=== PATIENT | female | born 1965 | race Caucasian/White ===

== ENCOUNTER → 2018-01-18 | Outpatient (CLI) | payer OTHER ==
[2018-01-18 14:58] LABS: ADD MAN DIFF? NO
[2018-01-18 15:00] LABS: BASO # 0.1 x10^3/uL (0.0-0.2); BASO % 1 % (0-3); EOS # 0.1 x10^3/uL (0.0-0.7); EOS % 1 % (0-3); HEMATOCRIT 38.5 % (36.0-47.0); HEMOGLOBIN 13.1 g/dL (12.0-15.5); LYMPH # 1.6 x10^3/uL (1.0-4.8); LYMPH % 28 % (24-48); MEAN CORPUSCULAR HEMOGLOBIN 31 pg (25-35); MEAN CORPUSCULAR HGB CONC 34 g/dL (31-37); MEAN CORPUSCULAR VOLUME 91 fL (79-100); MONO # 0.3 x10^3/uL (0.0-1.1); MONO % 5 % (0-9); NEUT # 3.8 x10^3uL (1.8-7.7); NEUT % 65 % (31-73); PLATELET COUNT 224 x10^3/uL (140-400); RED BLOOD COUNT 4.25 x10^6/uL (3.50-5.40); RED CELL DISTRIBUTION WIDTH 13.6 % (11.5-14.5); WHITE BLOOD COUNT 5.8 x10^3/uL (4.0-11.0)
[2018-01-18 15:16] LABS: ANION GAP 4 (6-14); BLOOD UREA NITROGEN 17 mg/dL (7-20); CARBON DIOXIDE 32 mmol/L (21-32); CHLORIDE 103 mmol/L (98-107); CREATININE 0.9 mg/dL (0.6-1.0); GFR 65.2; GLUCOSE 197 mg/dL (70-99); SODIUM 139 mmol/L (136-145)
[2018-01-19 07:30] LABS: HEMOGLOBIN A1C 7.6 % (4.8-5.6)
== END | disposition home or self-care (01) ==
LOC: SURGPAT 13:20
DX: C18.2 Malignant neoplasm of ascending colon (principal); K43.9 Ventral hernia without obstruction or gangrene
CPT/HCPCS: 36415; 80048; 82040; 83036; 85025

== ENCOUNTER 2018-01-29 06:38 | Inpatient (IN) | payer OTHER ==
[2018-01-29] MEDS ORDERED: LIDOCAINE 1% PF 2 ML VIAL. ID (07:00)
[2018-01-29] MEDS ORDERED: fentaNYL PF VIAL 100 MCG/2 ML VIAL IV (07:00)
[2018-01-29] MEDS ORDERED: ONDANSETRON PF 4 MG/2 ML VIAL. IV ×2 (07:00→11:15)
[2018-01-29] MEDS ORDERED: PROCHLORPERAZINE 10 MG/2 ML VIAL. IV (07:00)
[2018-01-29] MEDS: IV RINGERS,LACTATED 1000ML 1,000 ML IV ×2 (07:31→12:04)
[2018-01-29 07:34] LABS: POC GLUCOSE 142 mg/dL (70-99)
[2018-01-29] MEDS ORDERED: PROPOFOL 20 ML IV (07:36)
[2018-01-29] MEDS ORDERED: LIDOCAINE 2% PF Vial for OR 5 ML VIAL. (07:36)
[2018-01-29] MEDS ORDERED: ROCURONIUM 100 MG/10 ML VIAL. (07:37)
[2018-01-29] MEDS ORDERED: DEXAMETHASONE SOD PHOS 20 MG/5 ML VIAL. (07:37)
[2018-01-29] MEDS ORDERED: diphenhydrAMINE 50 MG/ML VIAL (07:37)
[2018-01-29] MEDS ORDERED: ONDANSETRON PF 4 MG/2 ML VIAL. (07:37)
[2018-01-29] MEDS ORDERED: NEOSTIGMINE METHYLSULFATE 5 MG/5 ML SYRINGE. (07:38)
[2018-01-29] MEDS ORDERED: fentaNYL PF VIAL 100 MCG/2 ML VIAL ×2 (07:38→11:33)
[2018-01-29] MEDS ORDERED: MIDAZOLAM HCL/PF 2 MG/2 ML VIAL. (07:38)
[2018-01-29] MEDS ORDERED: GLYCOPYRROLATE 1 MG/5 ML VIAL. (07:38)
[2018-01-29 08:04] LABS: INR 1.2 (0.8-1.1); PARTIAL THROMBOPLASTIN TIME 28 SEC (24-38); PROTHROMBIN TIME PATIENT 14.8 SEC (11.7-14.0)
[2018-01-29] MEDS: BUPIVAC MPF-EPI 0.5%-1:200000 30 ML VIAL. INJ (08:25)
[2018-01-29] MEDS ORDERED: PHENYLEPHRINE in 0.9% NACL PF 1 MG/10 ML SYRINGE. IV (08:26)
[2018-01-29] MEDS ORDERED: VASOPRESSIN 20 UNIT/ML VIAL. (09:03)
[2018-01-29] MEDS ORDERED: SEVOFLURANE > 120 MINUTES. IH (09:47)
[2018-01-29] MEDS ORDERED: HYDROmorphone 2 MG/ML VIAL (10:33)
[2018-01-29] MEDS ORDERED: DESFLURANE 31 TO 60 MINUTES IH (10:38)
[2018-01-29] MEDS ORDERED: 0.9 % SODIUM CHLORIDE 10 ML DISP.SYRIN. IV (11:15)
[2018-01-29] MEDS ORDERED: MORPHINE SULFATE 4 MG/ML DISP.SYRIN. (11:33)
[2018-01-29] MEDS: fentaNYL PF VIAL 100 MCG/2 ML VIAL IV ×2 (11:39→11:53)
[2018-01-29] MEDS ORDERED: NON FORMULARY ITEM (Albuterol Sulfate (Proair Hfa Inhaler) 1 PUFF) INH (12:15)
[2018-01-29] MEDS: MORPHINE SULFATE/PF 30 ML IV ×3 (12:21→22:58)
[2018-01-29] MEDS ORDERED: ALBUTEROL SULFATE 2.5 MG/3 ML NEBU. NEB (12:30)
[2018-01-29] MEDS: MORPHINE SULFATE 4 MG/ML DISP.SYRIN. IV ×4 (12:30→13:21)
[2018-01-29 12:56] LABS: POC GLUCOSE 168 mg/dL (70-99)
[2018-01-29] MEDS: NYSTATIN TOPICAL POWDER 15GM BOTTLE. TP (13:00)
[2018-01-29] MEDS ORDERED: traMADol 50 MG TABLET PO (15:15)
[2018-01-29] MEDS ORDERED: ACETAMINOPHEN 325 MG TABLET. PO (15:15)
[2018-01-29] MEDS ORDERED: hydrALAZINE 20 MG/ML VIAL. IVP (15:15)
[2018-01-29] MEDS ORDERED: DEXTROSE 50% 25 GM / 50ML DISP.SYRIN. IV (15:15)
[2018-01-29] MEDS ORDERED: MORPHINE SULFATE 4 MG/ML DISP.SYRIN. IV ×2 (15:30)
[2018-01-29 16:05] LABS: POC GLUCOSE 205 mg/dL (70-99)
[2018-01-29] MEDS: INSULIN LISPRO 300 UNITS/3 ML INSULN.PEN. SQ (17:31)
[2018-01-29] MEDS: POTASSIUM CL 20MEQ-0.45% NACL 1,000 ML IV ×2 (18:40→22:30)
[2018-01-29 20:28] LABS: POC GLUCOSE 159 mg/dL (70-99)
[2018-01-29] MEDS: ENOXAPARIN 40 MG/0.4 ML SYRINGE. SQ (21:00)
[2018-01-30 04:30] LABS: BASO % 0 % (0-3); EOS % 0 % (0-3); HEMATOCRIT 39.5 % (36.0-47.0); HEMOGLOBIN 13.4 g/dL (12.0-15.5); LYMPH # 0.7 x10^3/uL (1.0-4.8); LYMPH % 6 % (24-48); MEAN CORPUSCULAR HEMOGLOBIN 31 pg (25-35); MEAN CORPUSCULAR HGB CONC 34 g/dL (31-37); MEAN CORPUSCULAR VOLUME 92 fL (79-100); MONO # 0.6 x10^3/uL (0.0-1.1); MONO % 6 % (0-9); NEUT # 10.1 x10^3uL (1.8-7.7); NEUT % 88 % (31-73); PLATELET COUNT 265 x10^3/uL (140-400); RED BLOOD COUNT 4.31 x10^6/uL (3.50-5.40); RED CELL DISTRIBUTION WIDTH 13.8 % (11.5-14.5); WHITE BLOOD COUNT 11.5 x10^3/uL (4.0-11.0)
[2018-01-30 04:31] LABS: ADD MAN DIFF? YES
[2018-01-30] MEDS: POTASSIUM CL 20MEQ-0.45% NACL 1,000 ML IV (04:40)
[2018-01-30 04:44] LABS: ANION GAP 2 (6-14); BLOOD UREA NITROGEN 20 mg/dL (7-20); CALCIUM 9.2 mg/dL (8.5-10.1); CARBON DIOXIDE 33 mmol/L (21-32); CHLORIDE 102 mmol/L (98-107); CREATININE 1.5 mg/dL (0.6-1.0); GFR 36.2; GLUCOSE 193 mg/dL (70-99); POTASSIUM 5.2 mmol/L (3.5-5.1); SODIUM 137 mmol/L (136-145)
[2018-01-30] MEDS: MORPHINE SULFATE/PF 30 ML IV ×3 (05:11→16:12)
[2018-01-30 06:06] LABS: % LYMPHS 7 % (24-48); % MONOS 4 % (0-10); % SEGS 89 % (35-66); PLT ESTIMATE ADEQUATE (ADEQUATE)
[2018-01-30 07:45] LABS: POC GLUCOSE 179 mg/dL (70-99)
[2018-01-30] MEDS: INSULIN LISPRO 300 UNITS/3 ML INSULN.PEN. SQ ×3 (08:00→16:49)
[2018-01-30] MEDS: NYSTATIN TOPICAL POWDER 15GM BOTTLE. TP (09:00)
[2018-01-30] MEDS: BENZOCAINE/MENTHOL LOZENGE. PO ×3 (09:51→23:10)
[2018-01-30] MEDS: IV 1/2 NORMAL SALINE 1,000 ML IV ×2 (09:51→21:27)
[2018-01-30 11:47] LABS: POC GLUCOSE 142 mg/dL (70-99)
[2018-01-30 16:21] LABS: POC GLUCOSE 122 mg/dL (70-99)
[2018-01-30] MEDS: ENOXAPARIN 40 MG/0.4 ML SYRINGE. SQ (21:23)
[2018-01-31] MEDS: MORPHINE SULFATE/PF 30 ML IV ×4 (00:02→21:08)
[2018-01-31 01:12] LABS: HEMOGLOBIN A1C 7.5 % (4.8-5.6)
[2018-01-31] MEDS: BENZOCAINE/MENTHOL LOZENGE. PO ×5 (02:15→21:12)
[2018-01-31 05:57] LABS: ADD MAN DIFF? NO
[2018-01-31] MEDS: IV 1/2 NORMAL SALINE 1,000 ML IV ×2 (06:00→08:03)
[2018-01-31 06:08] LABS: BASO % 0 % (0-3); EOS % 0 % (0-3); HEMATOCRIT 36.3 % (36.0-47.0); HEMOGLOBIN 12.3 g/dL (12.0-15.5); LYMPH # 1.2 x10^3/uL (1.0-4.8); LYMPH % 15 % (24-48); MEAN CORPUSCULAR HEMOGLOBIN 31 pg (25-35); MEAN CORPUSCULAR HGB CONC 34 g/dL (31-37); MEAN CORPUSCULAR VOLUME 91 fL (79-100); MONO # 0.7 x10^3/uL (0.0-1.1); MONO % 9 % (0-9); NEUT # 6.3 x10^3uL (1.8-7.7); NEUT % 76 % (31-73); PLATELET COUNT 244 x10^3/uL (140-400); RED BLOOD COUNT 3.98 x10^6/uL (3.50-5.40); RED CELL DISTRIBUTION WIDTH 13.9 % (11.5-14.5); WHITE BLOOD COUNT 8.3 x10^3/uL (4.0-11.0)
[2018-01-31 07:06] LABS: ANION GAP 7 (6-14); BLOOD UREA NITROGEN 22 mg/dL (7-20); CALCIUM 8.3 mg/dL (8.5-10.1); CARBON DIOXIDE 31 mmol/L (21-32); CHLORIDE 102 mmol/L (98-107); CREATININE 1.2 mg/dL (0.6-1.0); GFR 46.8; GLUCOSE 115 mg/dL (70-99); SODIUM 140 mmol/L (136-145)
[2018-01-31 07:53] LABS: POC GLUCOSE 107 mg/dL (70-99)
[2018-01-31] MEDS: INSULIN LISPRO 300 UNITS/3 ML INSULN.PEN. SQ ×3 (08:00→17:00)
[2018-01-31] MEDS: NYSTATIN TOPICAL POWDER 15GM BOTTLE. TP (09:00)
[2018-01-31 13:17] LABS: POC GLUCOSE 125 mg/dL (70-99)
[2018-01-31 17:10] LABS: POC GLUCOSE 137 mg/dL (70-99)
[2018-01-31] MEDS: ENOXAPARIN 40 MG/0.4 ML SYRINGE. SQ (21:09)
[2018-01-31] MEDS: diphenhydrAMINE 50 MG/ML VIAL IV (21:12)
[2018-01-31 21:20] LABS: POC GLUCOSE 157 mg/dL (70-99)
[2018-01-31] MEDS: PHENOL ORAL SPRAY 177ML BOTTLE. PO (21:28)
[2018-02-01] MEDS: IV 1/2 NORMAL SALINE 1,000 ML IV ×2 (04:05→14:13)
[2018-02-01] MEDS: BENZOCAINE/MENTHOL LOZENGE. PO ×2 (04:05→21:50)
[2018-02-01] MEDS: diphenhydrAMINE 50 MG/ML VIAL IV (04:06)
[2018-02-01 04:11] LABS: ADD MAN DIFF? NO
[2018-02-01 04:41] LABS: ALBUMIN 2.6 g/dL (3.4-5.0); ALBUMIN/GLOBULIN RATIO 0.6 (1.0-1.7); ALK PHOS 66 U/L (46-116); ALT (SGPT) 24 U/L (14-59); ANION GAP 5 (6-14); AST (SGOT) 22 U/L (15-37); BASO % 0 % (0-3); BLOOD UREA NITROGEN 17 mg/dL (7-20); BUN/CREATININE RATIO 17 (6-20); CALCIUM 8.6 mg/dL (8.5-10.1); CARBON DIOXIDE 33 mmol/L (21-32); CHLORIDE 102 mmol/L (98-107); EOS % 0 % (0-3); GFR 57.8; GLUCOSE 115 mg/dL (70-99); HEMATOCRIT 34.3 % (36.0-47.0); HEMOGLOBIN 11.7 g/dL (12.0-15.5); LYMPH # 1.5 x10^3/uL (1.0-4.8); LYMPH % 26 % (24-48); MEAN CORPUSCULAR HEMOGLOBIN 31 pg (25-35); MEAN CORPUSCULAR HGB CONC 34 g/dL (31-37); MEAN CORPUSCULAR VOLUME 91 fL (79-100); MONO # 0.5 x10^3/uL (0.0-1.1); MONO % 8 % (0-9); NEUT # 3.7 x10^3uL (1.8-7.7); NEUT % 65 % (31-73); PLATELET COUNT 224 x10^3/uL (140-400); POTASSIUM 3.6 mmol/L (3.5-5.1); RED BLOOD COUNT 3.76 x10^6/uL (3.50-5.40); RED CELL DISTRIBUTION WIDTH 13.5 % (11.5-14.5); SODIUM 140 mmol/L (136-145); TOTAL BILIRUBIN 0.7 mg/dL (0.2-1.0); TOTAL PROTEIN 6.7 g/dL (6.4-8.2); WHITE BLOOD COUNT 5.8 x10^3/uL (4.0-11.0)
[2018-02-01] MEDS: diphenhydrAMINE HCL 25 MG CAPSULE PO ×2 (07:56→21:50)
[2018-02-01] MEDS: ONDANSETRON PF 4 MG/2 ML VIAL. IV (07:56)
[2018-02-01 07:57] LABS: POC GLUCOSE 125 mg/dL (70-99)
[2018-02-01] MEDS: INSULIN LISPRO 300 UNITS/3 ML INSULN.PEN. SQ ×3 (08:00→17:00)
[2018-02-01] MEDS: NYSTATIN TOPICAL POWDER 15GM BOTTLE. TP (10:08)
[2018-02-01 11:16] LABS: POC GLUCOSE 172 mg/dL (70-99)
[2018-02-01 11:49] LABS: INR 1.2 (0.8-1.1); PROTHROMBIN TIME PATIENT 14.4 SEC (11.7-14.0)
[2018-02-01] MEDS: DULoxetine HCL 20 MG CAPSULE.DR PO (14:14)
[2018-02-01] MEDS: GABAPENTIN 400 MG CAPSULE. PO ×2 (14:14→21:52)
[2018-02-01] MEDS: hydroCHLOROthiazide 12.5 MG CAPSULE PO (14:15)
[2018-02-01] MEDS: hydrOXYzine PAMOATE 25 MG CAPSULE PO ×3 (14:15→21:50)
[2018-02-01] MEDS: LOSARTAN POTASSIUM 50 MG TABLET. PO (14:16)
[2018-02-01] MEDS ORDERED: WARFARIN 5 MG TABLET. PO (16:00)
[2018-02-01 16:39] LABS: POC GLUCOSE 105 mg/dL (70-99)
[2018-02-01] MEDS: WARFARIN 7.5 MG TABLET. PO (16:58)
[2018-02-01] MEDS: CARVEDILOL 12.5 MG TABLET. PO (16:58)
[2018-02-01] MEDS: oxyCODONE/APAP 7.5/325 1 TAB TABLET PO ×2 (16:59→21:51)
[2018-02-01 21:31] LABS: POC GLUCOSE 190 mg/dL (70-99)
[2018-02-01] MEDS: ATORVASTATIN CALCIUM 40 MG TABLET. PO (21:50)
[2018-02-01] MEDS: PHENOL ORAL SPRAY 177ML BOTTLE. PO (21:52)
[2018-02-02 04:24] LABS: HEMOGLOBIN A1C 7.3 % (4.8-5.6)
[2018-02-02] MEDS: BENZOCAINE/MENTHOL LOZENGE. PO (06:00)
[2018-02-02] MEDS: IV 1/2 NORMAL SALINE 1,000 ML IV ×2 (06:00→17:51)
[2018-02-02] MEDS: diphenhydrAMINE HCL 25 MG CAPSULE PO (06:00)
[2018-02-02] MEDS: oxyCODONE/APAP 7.5/325 1 TAB TABLET PO (06:02)
[2018-02-02] MEDS: INSULIN LISPRO 300 UNITS/3 ML INSULN.PEN. SQ ×3 (08:00→18:12)
[2018-02-02 08:53] LABS: POC GLUCOSE 142 mg/dL (70-99)
[2018-02-02] MEDS: LOSARTAN POTASSIUM 50 MG TABLET. PO (09:00)
[2018-02-02] MEDS: hydroCHLOROthiazide 12.5 MG CAPSULE PO (09:01)
[2018-02-02] MEDS: hydrOXYzine PAMOATE 25 MG CAPSULE PO ×4 (09:01→21:19)
[2018-02-02] MEDS: DULoxetine HCL 20 MG CAPSULE.DR PO (09:02)
[2018-02-02] MEDS: GABAPENTIN 400 MG CAPSULE. PO ×3 (09:02→21:19)
[2018-02-02] MEDS: CARVEDILOL 12.5 MG TABLET. PO ×2 (09:03→16:41)
[2018-02-02] MEDS: NYSTATIN TOPICAL POWDER 15GM BOTTLE. TP (09:12)
[2018-02-02 10:37] LABS: ADD MAN DIFF? NO
[2018-02-02 10:56] LABS: ANION GAP 2 (6-14); BLOOD UREA NITROGEN 11 mg/dL (7-20); CALCIUM 8.8 mg/dL (8.5-10.1); CARBON DIOXIDE 34 mmol/L (21-32); CHLORIDE 102 mmol/L (98-107); GFR 57.8; GLUCOSE 156 mg/dL (70-99); SODIUM 138 mmol/L (136-145)
[2018-02-02 11:00] LABS: BASO % 1 % (0-3); EOS # 0.1 x10^3/uL (0.0-0.7); EOS % 2 % (0-3); HEMATOCRIT 34.3 % (36.0-47.0); HEMOGLOBIN 11.7 g/dL (12.0-15.5); LYMPH # 1.1 x10^3/uL (1.0-4.8); LYMPH % 25 % (24-48); MEAN CORPUSCULAR HEMOGLOBIN 31 pg (25-35); MEAN CORPUSCULAR HGB CONC 34 g/dL (31-37); MEAN CORPUSCULAR VOLUME 92 fL (79-100); MONO # 0.3 x10^3/uL (0.0-1.1); MONO % 7 % (0-9); NEUT # 2.7 x10^3uL (1.8-7.7); NEUT % 65 % (31-73); PLATELET COUNT 229 x10^3/uL (140-400); RED BLOOD COUNT 3.75 x10^6/uL (3.50-5.40); RED CELL DISTRIBUTION WIDTH 13.8 % (11.5-14.5); WHITE BLOOD COUNT 4.2 x10^3/uL (4.0-11.0)
[2018-02-02 11:04] LABS: INR 1.2 (0.8-1.1); PROTHROMBIN TIME PATIENT 14.5 SEC (11.7-14.0)
[2018-02-02 11:26] LABS: POC GLUCOSE 187 mg/dL (70-99)
[2018-02-02] MEDS: oxyCODONE/APAP 10/325 1 TAB TABLET PO ×3 (12:33→21:19)
[2018-02-02] MEDS: WARFARIN 7.5 MG TABLET. PO (16:41)
[2018-02-02 17:16] LABS: C DIFF BY PCR Negative (Negative)
[2018-02-02] MEDS: LOPERAMIDE 2 MG CAPSULE PO ×2 (17:49→21:19)
[2018-02-02 18:10] LABS: POC GLUCOSE 165 mg/dL (70-99)
[2018-02-02 21:19] LABS: POC GLUCOSE 153 mg/dL (70-99)
[2018-02-02] MEDS: ATORVASTATIN CALCIUM 40 MG TABLET. PO (21:19)
[2018-02-03] MEDS: oxyCODONE/APAP 10/325 1 TAB TABLET PO ×5 (02:07→20:53)
[2018-02-03 07:48] LABS: POC GLUCOSE 132 mg/dL (70-99)
[2018-02-03] MEDS: INSULIN LISPRO 300 UNITS/3 ML INSULN.PEN. SQ ×4 (08:00→20:59)
[2018-02-03] MEDS: DULoxetine HCL 20 MG CAPSULE.DR PO (08:01)
[2018-02-03] MEDS: GABAPENTIN 400 MG CAPSULE. PO ×3 (08:01→20:54)
[2018-02-03] MEDS: hydroCHLOROthiazide 12.5 MG CAPSULE PO (08:01)
[2018-02-03] MEDS: hydrOXYzine PAMOATE 25 MG CAPSULE PO ×4 (08:01→20:53)
[2018-02-03] MEDS: CARVEDILOL 12.5 MG TABLET. PO ×2 (08:02→17:28)
[2018-02-03] MEDS: LOSARTAN POTASSIUM 50 MG TABLET. PO (08:02)
[2018-02-03] MEDS: NYSTATIN TOPICAL POWDER 15GM BOTTLE. TP (08:10)
[2018-02-03 11:28] LABS: INR 1.4 (0.8-1.1); PROTHROMBIN TIME PATIENT 16.1 SEC (11.7-14.0)
[2018-02-03] MEDS: IV 1/2 NORMAL SALINE 1,000 ML IV ×2 (11:35→15:20)
[2018-02-03 11:44] LABS: POC GLUCOSE 164 mg/dL (70-99)
[2018-02-03] MEDS: WARFARIN 7.5 MG TABLET. PO (15:12)
[2018-02-03 17:28] LABS: POC GLUCOSE 109 mg/dL (70-99)
[2018-02-03 20:13] LABS: POC GLUCOSE 222 mg/dL (70-99)
[2018-02-03] MEDS: ATORVASTATIN CALCIUM 40 MG TABLET. PO (20:53)
[2018-02-03] MEDS: BENZOCAINE/MENTHOL LOZENGE. PO (21:00)
[2018-02-04] MEDS: oxyCODONE/APAP 10/325 1 TAB TABLET PO ×6 (01:02→22:28)
[2018-02-04 04:52] LABS: ADD MAN DIFF? NO
[2018-02-04] MEDS: IV 1/2 NORMAL SALINE 1,000 ML IV ×2 (05:02→19:57)
[2018-02-04 05:13] LABS: BASO % 1 % (0-3); EOS % 1 % (0-3); HEMATOCRIT 29.6 % (36.0-47.0); HEMOGLOBIN 10.4 g/dL (12.0-15.5); LYMPH # 1.1 x10^3/uL (1.0-4.8); LYMPH % 31 % (24-48); MEAN CORPUSCULAR HEMOGLOBIN 32 pg (25-35); MEAN CORPUSCULAR HGB CONC 35 g/dL (31-37); MEAN CORPUSCULAR VOLUME 91 fL (79-100); MONO # 0.4 x10^3/uL (0.0-1.1); MONO % 11 % (0-9); NEUT % 56 % (31-73); PLATELET COUNT 202 x10^3/uL (140-400); RED BLOOD COUNT 3.24 x10^6/uL (3.50-5.40); RED CELL DISTRIBUTION WIDTH 13.2 % (11.5-14.5); WHITE BLOOD COUNT 3.5 x10^3/uL (4.0-11.0)
[2018-02-04 05:31] LABS: ANION GAP 8 (6-14); BLOOD UREA NITROGEN 8 mg/dL (7-20); CALCIUM 8.3 mg/dL (8.5-10.1); CARBON DIOXIDE 31 mmol/L (21-32); CHLORIDE 105 mmol/L (98-107); CREATININE 1.1 mg/dL (0.6-1.0); GFR 51.8; GLUCOSE 164 mg/dL (70-99); POTASSIUM 3.7 mmol/L (3.5-5.1); SODIUM 144 mmol/L (136-145)
[2018-02-04 06:25] LABS: INR 1.4 (0.8-1.1); PROTHROMBIN TIME PATIENT 16.8 SEC (11.7-14.0)
[2018-02-04] MEDS: INSULIN LISPRO 300 UNITS/3 ML INSULN.PEN. SQ ×3 (08:00→17:27)
[2018-02-04] MEDS: CARVEDILOL 12.5 MG TABLET. PO ×2 (08:08→17:38)
[2018-02-04 08:27] LABS: POC GLUCOSE 111 mg/dL (70-99)
[2018-02-04] MEDS: DULoxetine HCL 20 MG CAPSULE.DR PO (09:17)
[2018-02-04] MEDS: GABAPENTIN 400 MG CAPSULE. PO ×3 (09:17→19:58)
[2018-02-04] MEDS: LOSARTAN POTASSIUM 50 MG TABLET. PO (09:36)
[2018-02-04] MEDS: hydroCHLOROthiazide 12.5 MG CAPSULE PO (09:36)
[2018-02-04] MEDS: NYSTATIN TOPICAL POWDER 15GM BOTTLE. TP (10:10)
[2018-02-04] MEDS: hydrOXYzine PAMOATE 25 MG CAPSULE PO ×4 (10:10→19:58)
[2018-02-04 11:58] LABS: POC GLUCOSE 204 mg/dL (70-99)
[2018-02-04] MEDS: WARFARIN 10 MG TABLET. PO (16:23)
[2018-02-04 16:58] LABS: POC GLUCOSE 116 mg/dL (70-99)
[2018-02-04] MEDS: ATORVASTATIN CALCIUM 40 MG TABLET. PO (19:58)
[2018-02-04 20:33] LABS: POC GLUCOSE 172 mg/dL (70-99)
[2018-02-05] MEDS: MORPHINE SULFATE 4 MG/ML DISP.SYRIN. IV ×2 (00:26→04:42)
[2018-02-05 03:35] LABS: ADD MAN DIFF? NO
[2018-02-05 03:55] LABS: BASO % 1 % (0-3); EOS # 0.1 x10^3/uL (0.0-0.7); EOS % 1 % (0-3); HEMATOCRIT 31.3 % (36.0-47.0); LYMPH # 1.3 x10^3/uL (1.0-4.8); LYMPH % 29 % (24-48); MEAN CORPUSCULAR HEMOGLOBIN 32 pg (25-35); MEAN CORPUSCULAR HGB CONC 35 g/dL (31-37); MEAN CORPUSCULAR VOLUME 91 fL (79-100); MONO # 0.5 x10^3/uL (0.0-1.1); MONO % 11 % (0-9); NEUT # 2.6 x10^3uL (1.8-7.7); NEUT % 58 % (31-73); PLATELET COUNT 224 x10^3/uL (140-400); RED BLOOD COUNT 3.43 x10^6/uL (3.50-5.40); RED CELL DISTRIBUTION WIDTH 13.9 % (11.5-14.5); WHITE BLOOD COUNT 4.4 x10^3/uL (4.0-11.0)
[2018-02-05 04:02] LABS: INR 1.6 (0.8-1.1); PROTHROMBIN TIME PATIENT 18.8 SEC (11.7-14.0)
[2018-02-05 04:21] LABS: ANION GAP 6 (6-14); BLOOD UREA NITROGEN 8 mg/dL (7-20); CARBON DIOXIDE 34 mmol/L (21-32); CHLORIDE 102 mmol/L (98-107); CREATININE 1.1 mg/dL (0.6-1.0); GFR 51.8; GLUCOSE 131 mg/dL (70-99); POTASSIUM 3.4 mmol/L (3.5-5.1); SODIUM 142 mmol/L (136-145)
[2018-02-05] MEDS: oxyCODONE/APAP 10/325 1 TAB TABLET PO ×5 (04:42→21:13)
[2018-02-05 07:59] LABS: POC GLUCOSE 109 mg/dL (70-99)
[2018-02-05] MEDS: CARVEDILOL 12.5 MG TABLET. PO ×2 (08:16→16:58)
[2018-02-05] MEDS: INSULIN LISPRO 300 UNITS/3 ML INSULN.PEN. SQ ×3 (08:16→17:07)
[2018-02-05] MEDS: GABAPENTIN 400 MG CAPSULE. PO ×3 (08:55→21:11)
[2018-02-05] MEDS: hydroCHLOROthiazide 12.5 MG CAPSULE PO (08:56)
[2018-02-05] MEDS: DULoxetine HCL 20 MG CAPSULE.DR PO (08:56)
[2018-02-05] MEDS: LOSARTAN POTASSIUM 50 MG TABLET. PO (08:57)
[2018-02-05] MEDS: hydrOXYzine PAMOATE 25 MG CAPSULE PO ×4 (08:57→21:12)
[2018-02-05] MEDS: NYSTATIN TOPICAL POWDER 15GM BOTTLE. TP (08:58)
[2018-02-05] MEDS: fentaNYL 25MCG/HR PATCH 1 PATCH PATCH.TD72 TD (11:35)
[2018-02-05 12:00] LABS: POC GLUCOSE 181 mg/dL (70-99)
[2018-02-05] MEDS: IPRATRPIUM/ALBUTEROL 0.5/2.5MG 3 ML NEBU. NEB ×3 (13:03→18:17)
[2018-02-05 14:49] LABS: BILIRUBIN,URINE NEGATIVE (NEG); CLARITY,URINE CLEAR; COLOR,URINE YELLOW; GLUCOSE,URINE NEGATIVE (NEG); NITRITE,URINE NEGATIVE (NEG); PH,URINE 5.5; PROTEIN,URINE NEGATIVE (NEG-TRACE); UROBILINOGEN,URINE 0.2 mg/dL (0.2 mg/dL)
[2018-02-05 14:55] LABS: BACTERIA,URINE FEW /HPF (0-FEW); RBC,URINE 0 /HPF (0-2); SQUAMOUS EPITHELIAL CELL,UR FEW /LPF; WBC,URINE OCC /HPF (0-4)
[2018-02-05 16:27] LABS: POC GLUCOSE 168 mg/dL (70-99)
[2018-02-05] MEDS: WARFARIN 10 MG TABLET. PO (16:30)
[2018-02-05 20:41] LABS: POC GLUCOSE 186 mg/dL (70-99)
[2018-02-05 21:12] LABS: C DIFF BY PCR Negative (Negative)
[2018-02-05] MEDS: ATORVASTATIN CALCIUM 40 MG TABLET. PO (21:12)
[2018-02-06] MEDS: oxyCODONE/APAP 10/325 1 TAB TABLET PO ×4 (01:22→13:41)
[2018-02-06] MEDS: IPRATRPIUM/ALBUTEROL 0.5/2.5MG 3 ML NEBU. NEB ×2 (07:01→12:00)
[2018-02-06] MEDS: INSULIN LISPRO 300 UNITS/3 ML INSULN.PEN. SQ ×2 (08:00→12:38)
[2018-02-06 08:10] LABS: POC GLUCOSE 139 mg/dL (70-99)
[2018-02-06] MEDS: DULoxetine HCL 20 MG CAPSULE.DR PO (08:39)
[2018-02-06] MEDS: LOSARTAN POTASSIUM 50 MG TABLET. PO (08:39)
[2018-02-06] MEDS: GABAPENTIN 400 MG CAPSULE. PO ×2 (08:40→13:44)
[2018-02-06] MEDS: CARVEDILOL 12.5 MG TABLET. PO (08:40)
[2018-02-06] MEDS: hydroCHLOROthiazide 12.5 MG CAPSULE PO (08:40)
[2018-02-06] MEDS: DOCUSATE SODIUM 100 MG CAPSULE. PO (08:41)
[2018-02-06 08:50] LABS: ADD MAN DIFF? NO
[2018-02-06] MEDS: NYSTATIN TOPICAL POWDER 15GM BOTTLE. TP (09:00)
[2018-02-06 09:07] LABS: BASO % 1 % (0-3); EOS # 0.1 x10^3/uL (0.0-0.7); EOS % 2 % (0-3); HEMATOCRIT 30.9 % (36.0-47.0); HEMOGLOBIN 10.7 g/dL (12.0-15.5); LYMPH % 29 % (24-48); MEAN CORPUSCULAR HEMOGLOBIN 31 pg (25-35); MEAN CORPUSCULAR HGB CONC 35 g/dL (31-37); MEAN CORPUSCULAR VOLUME 91 fL (79-100); MONO # 0.4 x10^3/uL (0.0-1.1); MONO % 12 % (0-9); NEUT # 2.1 x10^3uL (1.8-7.7); NEUT % 57 % (31-73); PLATELET COUNT 219 x10^3/uL (140-400); RED BLOOD COUNT 3.42 x10^6/uL (3.50-5.40); RED CELL DISTRIBUTION WIDTH 13.8 % (11.5-14.5); WHITE BLOOD COUNT 3.6 x10^3/uL (4.0-11.0)
[2018-02-06 09:14] LABS: INR 2.2 (0.8-1.1); PROTHROMBIN TIME PATIENT 23.6 SEC (11.7-14.0)
[2018-02-06 09:30] LABS: ALBUMIN 2.6 g/dL (3.4-5.0); ALBUMIN/GLOBULIN RATIO 0.6 (1.0-1.7); ALK PHOS 62 U/L (46-116); ALT (SGPT) 47 U/L (14-59); ANION GAP 3 (6-14); AST (SGOT) 23 U/L (15-37); BLOOD UREA NITROGEN 8 mg/dL (7-20); BUN/CREATININE RATIO 7 (6-20); CALCIUM 8.8 mg/dL (8.5-10.1); CARBON DIOXIDE 35 mmol/L (21-32); CHLORIDE 101 mmol/L (98-107); CREATININE 1.1 mg/dL (0.6-1.0); GFR 51.8; GLUCOSE 153 mg/dL (70-99); POTASSIUM 3.4 mmol/L (3.5-5.1); SODIUM 139 mmol/L (136-145); TOTAL BILIRUBIN 0.3 mg/dL (0.2-1.0); TOTAL PROTEIN 6.7 g/dL (6.4-8.2)
[2018-02-06] MEDS: hydrOXYzine PAMOATE 25 MG CAPSULE PO ×2 (10:02→13:42)
[2018-02-06 11:16] LABS: POC GLUCOSE 207 mg/dL (70-99)
[2018-02-06] MEDS ORDERED: WARFARIN 5 MG TABLET. PO (16:00)
[2018-02-08] MEDS ORDERED: fentaNYL 25MCG/HR PATCH 1 PATCH PATCH.TD72 TD (09:00)
== END 2018-02-06 14:50 | disposition home health service (06) | DRG 329 ==
LOC: OPSVCIP 06:38 → 4 NORTH 13:45
PROC: 0DTF0ZZ Resection of Right Large Intestine, Open Approach (ICD-10-PCS; principal; 2018-01-29 07:54)
PROC: 0WQF0ZZ Repair Abdominal Wall, Open Approach (ICD-10-PCS; 2018-01-29 07:54)
DX: C18.2 Malignant neoplasm of ascending colon (principal); N17.0 Acute kidney failure with tubular necrosis; K43.0 Incisional hernia with obstruction, without gangrene; E11.42 Type 2 diabetes mellitus with diabetic polyneuropathy; E66.01 Morbid (severe) obesity due to excess calories; E11.22 Type 2 diabetes mellitus with diabetic chronic kidney disease; F41.9 Anxiety disorder, unspecified; N18.3 Chronic kidney disease, stage 3 (moderate); I12.9 Hypertensive chronic kidney disease with stage 1 through stage 4 chronic kidney disease, or unspecified chronic kidney disease; F32.9 Major depressive disorder, single episode, unspecified; F17.200 Nicotine dependence, unspecified, uncomplicated; M79.7 Fibromyalgia; E78.5 Hyperlipidemia, unspecified; M54.9 Dorsalgia, unspecified; J45.20 Mild intermittent asthma, uncomplicated; E66.9 Obesity, unspecified; Z79.01 Long term (current) use of anticoagulants; Z79.4 Long term (current) use of insulin; Z80.41 Family history of malignant neoplasm of ovary; Z80.7 Family history of other malignant neoplasms of lymphoid, hematopoietic and related tissues; Z82.49 Family history of ischemic heart disease and other diseases of the circulatory system; Z85.038 Personal history of other malignant neoplasm of large intestine; Z83.3 Family history of diabetes mellitus; Z86.711 Personal history of pulmonary embolism; Z86.718 Personal history of other venous thrombosis and embolism; Z87.442 Personal history of urinary calculi; Z87.01 Personal history of pneumonia (recurrent); Z90.49 Acquired absence of other specified parts of digestive tract; Z88.8 Allergy status to other drugs, medicaments and biological substances
CPT/HCPCS: 36415; 71046; 74018; 80048; 80053; 81001; 82378; 82962; 83036; 85007; 85025; 85610; 85730; 86850; 86900; 86901; 87324; 94640; 94760; 97116-GP; 97161-GP; 97166-GO; 97530-GO; 97530-GP; 97535-GO; A7015; J0694; J1100; J1200; J1650; J1815; J2060; J2250; J2270; J2370; J2405; J2704; J2710; J3010; J3490; J7030; J7120; J7620; Q0163; Q0177

== ENCOUNTER 2018-03-26 17:40 | Emergency (ER) | payer OTHER ==
[2018-03-26 18:36] LABS: ADD MAN DIFF? NO
[2018-03-26 18:39] LABS: BASO # 0.1 x10^3/uL (0.0-0.2); BASO % 1 % (0-3); EOS # 0.1 x10^3/uL (0.0-0.7); EOS % 2 % (0-3); HEMOGLOBIN 13.3 g/dL (12.0-15.5); LYMPH # 1.7 x10^3/uL (1.0-4.8); LYMPH % 31 % (24-48); MEAN CORPUSCULAR HEMOGLOBIN 29 pg (25-35); MEAN CORPUSCULAR HGB CONC 33 g/dL (31-37); MEAN CORPUSCULAR VOLUME 88 fL (79-100); MONO # 0.4 x10^3/uL (0.0-1.1); MONO % 8 % (0-9); NEUT # 3.2 x10^3uL (1.8-7.7); NEUT % 58 % (31-73); PLATELET COUNT 265 x10^3/uL (140-400); RED BLOOD COUNT 4.56 x10^6/uL (3.50-5.40); RED CELL DISTRIBUTION WIDTH 14.6 % (11.5-14.5); WHITE BLOOD COUNT 5.5 x10^3/uL (4.0-11.0)
[2018-03-26 18:48] LABS: INR 2.1 (0.8-1.1)
[2018-03-26] MEDS: IV NORMAL SALINE 1000ML BAG 1,000 ML IV (18:48)
[2018-03-26 18:53] LABS: ANION GAP 4 (6-14); BLOOD UREA NITROGEN 18 mg/dL (7-20); BUN/CREATININE RATIO 18 (6-20); CALCIUM 9.1 mg/dL (8.5-10.1); CARBON DIOXIDE 33 mmol/L (21-32); CHLORIDE 102 mmol/L (98-107); GFR 57.8; GLUCOSE 144 mg/dL (70-99); POTASSIUM 3.7 mmol/L (3.5-5.1); SODIUM 139 mmol/L (136-145)
[2018-03-26 18:59] LABS: ALBUMIN 3.2 g/dL (3.4-5.0); ALBUMIN/GLOBULIN RATIO 0.7 (1.0-1.7); ALK PHOS 89 U/L (46-116); ALT (SGPT) 24 U/L (14-59); AST (SGOT) 15 U/L (15-37); LIPASE 219 U/L (73-393); MAGNESIUM 1.6 mg/dL (1.8-2.4); TOTAL BILIRUBIN 0.3 mg/dL (0.2-1.0); TOTAL PROTEIN 7.6 g/dL (6.4-8.2)
[2018-03-26 19:01] LABS: TROPONINI < 0.017 ng/mL (0.000-0.055)
[2018-03-26 19:07] LABS: THYROID STIM HORMONE (TSH) 0.502 uIU/mL (0.358-3.74)
[2018-03-26 19:08] LABS: CKMB MASS < 0.5 ng/mL (0.0-3.6); CREATINE KINASE 93 U/L (26-192)
[2018-03-26 19:08] LABS: NT-PRO BNP 324 pg/mL (0-124)
== END 2018-03-26 22:16 | disposition home or self-care (01) ==
LOC: ER 17:40
DX: R42 Dizziness and giddiness (principal); I95.9 Hypotension, unspecified; E11.40 Type 2 diabetes mellitus with diabetic neuropathy, unspecified; E78.00 Pure hypercholesterolemia, unspecified; I10 Essential (primary) hypertension; M79.7 Fibromyalgia; Z87.442 Personal history of urinary calculi; Z86.711 Personal history of pulmonary embolism; F17.200 Nicotine dependence, unspecified, uncomplicated; Z88.8 Allergy status to other drugs, medicaments and biological substances
CPT/HCPCS: 36415; 71045; 80053; 82553; 83690; 83735; 83880; 84443; 84484; 85025; 85610; 93005; 96360; 99285-25; J7030

== ENCOUNTER → 2018-08-28 | Outpatient (CLI) | payer OTHER ==
[2018-03-26 22:16] VITALS: BP 133/66
[~2018-08-28] MED LIST: ATOR40TA59 PO; CARV25TA2 PO; CLOT15CR5 TP; DULO20CA PO; GABA-587 PO; GLIP10TA13 PO; HYDR50CA PO; INSU100I13 SQ; LOSA1TAB19 PO; NYST15PO9 TP; NYST60PO TP; PROAIR HFA8.5 GM INH; TEMA15CA PO; WARF-78 PO; WARF7.5T48 PO
--- NOTE | 2018-08-29 09:39 | SLEEP ---
DATE OF STUDY: 08/28/2018 ATTENDING PHYSICIAN: Dr. Rivka Contreras. The patient is 53 years old who weighs 250 pounds with a BMI of 46. The patient's Elkins score was 11. The patient had a sleep study 7 years ago and was positive for sleep apnea, but could not tolerate CPAP. She lost 30 pounds since then. Another sleep study was requested. During the night study, the patient spent 437 minutes in bed and slept for 389 minutes with a sleep efficiency of 89%. Sleep latency was 9 minutes with a REM latency of 393 minutes. Overall, sleep architecture showed normal stage 1 and stage 2 sleep, increased slow wave sleep and reduced REM sleep. During the night study, the patient had 6 obstructive apneas, 1 mixed apnea and no central apneas and 77 hypopneas. The patient's apnea hypopnea index was 13 per hour, supine index 28 per hour and a REM index of 12 per hour. EKG monitoring revealed an average heart rate of 86 beats per minute with episodes of sinus tachycardia with a maximum heart rate of 100 beats per minute. No arrhythmias seen. PLMS were seen at index of 72 per hour and 6 per hour caused EEG arousals. Nocturnal oximetry study revealed a mean oxygen saturation of 93% with lowest of 82%. 76% of the time oxygen saturation remained between 80% and 89%. Due to low AHI, the patient did not meet the split night criteria for CPAP initiation. IMPRESSION: 1. Mild sleep apnea-hypopnea syndrome with moderate increase during supine sleep. Total AHI 13 per hour with a supine AHI of 28 per hour. 2. Nocturnal hypoxia secondary to obstructive sleep apnea. 3. Severe PLMS. RECOMMENDATIONS: 1. The patient is clinically symptomatic. I would recommend treating patient's sleep apnea either with oral appliance or a trial of CPAP titration. 2. If the patient undergoes CPAP titration study, then she should be followed up in 4-6 weeks to assess compliance with CPAP and to document clinical improvement. 3. Weight loss is strongly advised. 4. Avoid [employer] depressants. 5. Avoid supine sleep. 6. Caution regarding driving until symptoms of sleep apnea resolve with the above recommendations. DINA HANNAH MD DR: RUBY/moy JOB#: [id number] / [id number] RIVKA Suero MD
== END | disposition home or self-care (01) ==
LOC: SLPLAB 18:30
PROVIDERS: ATTEND Family Medicine
DX: G47.33 Obstructive sleep apnea (adult) (pediatric) (principal); G47.34 Idiopathic sleep related nonobstructive alveolar hypoventilation; G47.61 Periodic limb movement disorder
CPT/HCPCS: 95810

== ENCOUNTER → 2019-02-07 | Day surgery (SDC) | payer OTHER ==
[~2019-02-07] MED LIST changes: +ALBU2.5V8 INH; -GABA-587 PO; +GABA-689 PO; +IV RINGERS,LACTATED 1000ML 1,000 ML IV SCH; +LIDOCAINE 2% PF 5 ML VIAL. ONE; -PROAIR HFA8.5 GM INH; +PROPOFOL 40 ML IV ONE; +WARF1TAB69 PO; +ZOLP10TA4 PO
[2019-02-07 15:00] VITALS: BP 112/70
--- NOTE | 2019-02-08 14:07 | PATHOLOGY ---
[facility] Accession Number: [id number] . 01 Material submitted: . PART A: colon - SIGMOID POLYP. Modifiers: sigmoid PART B: colon - DESCENDING COLON POLYPECTOMY. Modifiers: descending . 01 Clinical history: . Pre-OP DX: HX colon cancer Post-OP DX: Polyps . 02 Diagnosis: A. Colon biopsy, sigmoid polyp: - Hyperplastic polyp. . B. Descending colon polypectomy: - Tubular adenoma. (JPM:denzel; 02/08/2019) QMS/02/08/2019 . 02 Comment: There is no high-grade dysplasia or evidence of malignancy. . 02 Electronically signed: . Andrei Bean MD, Pathologist NPI- [id number] . 01 Gross description: . A. Received in formalin labeled "Fay, Jacinta, sigmoid polyp," is a single segment of barrios soft tissue measuring 0.3 cm in maximum dimension. The specimen is entirely submitted in cassette A1. . B. Received in formalin labeled "Fay, Jacinta, descending colon polyp," is a 1.1 x 0.8 x 0.8 cm polypoid piece of barrios soft tissue. The margin is inked and the tissue is sectioned perpendicular to the margin and submitted in its entirely in cassette B1 through B3. (TSD; 02/07/2019) TOB/TOB . 02 Pathologist provided ICD-10: K63.5, D12.4 . 02 CPT . 285965, 875086 Specimen Comment: A courtesy copy of this report has been sent to Specimen Comment: [phone], . Specimen Comment: Report sent to / DR GUERRA Performed at: [address] [place] [address] [address], [place], [place] [id number] MD Alexys Gil MD Phone: [phone] Performed at: [address] [id number] MD Andrei Bean MD Phone: [phone]
== END | disposition home or self-care (01) ==
LOC: ENDOS 12:47
PROVIDERS: ATTEND Internal Medicine Gastroenterology
DX: Z08 Encounter for follow-up examination after completed treatment for malignant neoplasm (principal); Z85.038 Personal history of other malignant neoplasm of large intestine; D12.4 Benign neoplasm of descending colon; K63.5 Polyp of colon; K64.0 First degree hemorrhoids; E11.9 Type 2 diabetes mellitus without complications; I10 Essential (primary) hypertension; J45.909 Unspecified asthma, uncomplicated; Z86.711 Personal history of pulmonary embolism; Z86.718 Personal history of other venous thrombosis and embolism; Z86.010 Personal history of colon polyps; F41.9 Anxiety disorder, unspecified; M19.90 Unspecified osteoarthritis, unspecified site; F32.9 Major depressive disorder, single episode, unspecified; E78.00 Pure hypercholesterolemia, unspecified; G47.30 Sleep apnea, unspecified; M79.7 Fibromyalgia; Z82.49 Family history of ischemic heart disease and other diseases of the circulatory system; Z87.891 Personal history of nicotine dependence; Z90.49 Acquired absence of other specified parts of digestive tract; Z98.890 Other specified postprocedural states; Z88.8 Allergy status to other drugs, medicaments and biological substances; Z79.84 Long term (current) use of oral hypoglycemic drugs; Z79.899 Other long term (current) drug therapy
CPT/HCPCS: 45380; 45385; 82962; 88305; J2001; J2704; 45382

== ENCOUNTER → 2019-02-11 | Outpatient (CLI) | payer OTHER ==
[2019-02-07 15:00] VITALS: BP 112/70
[~2019-02-11] MED LIST changes: -IV RINGERS,LACTATED 1000ML 1,000 ML IV SCH; -LIDOCAINE 2% PF 5 ML VIAL. ONE; -PROPOFOL 40 ML IV ONE
--- NOTE | 2019-02-12 10:00 | RAD ---
DATE: 02/11/2019 EXAM: MAMMO ADRIANO SCREENING BILATERAL HISTORY: Routine screening COMPARISON: None available This study was interpreted with the benefit of Computerized Aided Detection (CAD). Breast Density: FATTY The breast parenchyma is primarily fatty replaced. Breast parenchyma level density A. FINDINGS: 2-D and 3-D tomosynthesis imaging was performed in CC and MLO projections. There is a 6 mm slightly lobulated nodule present at the 6:00 location in the left breast best seen on left CC tomosynthesis images #16. No spiculated mass or architectural distortion is identified. Benign type calcifications are present. No suspicious microcalcifications are identified. IMPRESSION: Small left breast nodule, left breast ultrasound is suggested for further evaluation. BI-RADS CATEGORY: 0 INCOMPLETE: NEEDS ADDITIONAL IMAGING EVALUATION AND/OR PRIOR MAMMOGRAMS FOR COMPARISON. RECOMMENDED FOLLOW-UP: ADD ADDITIONAL IMAGING PQRS compliance statement: Patient information was entered into a reminder system with a target due date for the next mammogram. Mammography is a sensitive method for finding small breast cancers, but it does not detect them all and is not a substitute for careful clinical examination. A negative mammogram does not negate a clinically suspicious finding and should not result in delay in biopsying a clinically suspicious abnormality. "Our facility is accredited by the [employer] Mammography Program."
== END | disposition home or self-care (01) ==
LOC: MAMMO 13:38
PROVIDERS: ATTEND Family Medicine
DX: Z12.31 Encounter for screening mammogram for malignant neoplasm of breast (principal); N63.24 Unspecified lump in the left breast, lower inner quadrant; N64.89 Other specified disorders of breast
CPT/HCPCS: 77063; 77067

== ENCOUNTER → 2019-03-11 | Outpatient (CLI) | payer OTHER ==
[2019-02-07 15:00] VITALS: BP 112/70
--- NOTE | 2019-03-11 15:36 | RAD ---
EXAM: Left breast ultrasound. HISTORY: Density on mammographic screening. Sonography is requested. COMPARISON: 02/11/2019. FINDINGS: Sonography of the left breast was performed at the site of mammographic concern. At the 6:00 position 2 cm from the nipple, there is an oval hypoechoic lesion most likely representing a complicated cyst. It measures 7 x 3 x 6 mm. This likely corresponds with the mammographic finding. Benignity is favored. Images of the left axilla reveal no suspicious lymph nodes. IMPRESSION: 1. BI-RADS Category 3: Probably benign findings. 2. Recommend 6 month follow-up left diagnostic mammography and sonography to confirm stability of the above findings at baseline.
== END | disposition home or self-care (01) ==
LOC: US 13:47
PROVIDERS: ATTEND Family Medicine
DX: N64.89 Other specified disorders of breast (principal)
CPT/HCPCS: 76641